=== PATIENT | female | born 1945 | race African-American/Black ===

== ENCOUNTER → 2017-02-17 | Outpatient (CLI) | payer MEDICARE, MEDICAID ==
[~2017-02-17] MED LIST: AMLO-145 PO; BUPR-166 PO; CYCL-117 PO; QUET300T5 PO
--- NOTE | 2017-02-17 12:11 | RADRPT ---
PROCEDURE: Ultrasound of the right upper extremity venous system. CLINICAL INDICATION: Right upper extremity swelling.. TECHNIQUE: Concepcion scale with and without compression, color doppler, spectral doppler of the venous system of the bilateral upper extremity was performed. Venous augmentation maneuvers were utilized. COMPARISON: No prior studies are available for comparison. FINDINGS: RIGHT: Jugular vein: Patent and compressible. Subclavian vein: Patent and compressible. Axillary vein: Patent and compressible. Brachial vein: Patent and compressible. Basilic vein: Patent and compressible. Cephalic vein: Not visualized. Soft tissues:Normal IMPRESSION: 1. No evidence of right upper extremity deep vein thrombosis. RPTAT: [facility] Physician Mitchell Date Time Electronically viewed and signed by Physician Mitchell on 02/17/2017 12:10 /
== END | disposition home or self-care (01) ==
LOC: VAS 10:56
PROVIDERS: ATTEND Internal Medicine
DX: I80.9 Phlebitis and thrombophlebitis of unspecified site (principal)
CPT/HCPCS: 93971

== ENCOUNTER → 2017-03-21 | Outpatient (CLI) | payer MEDICARE, OTHER ==
--- NOTE | 2017-03-21 16:01 | RADRPT ---
PROCEDURE: US Thyroid. CLINICAL INDICATION: Neck pain. TECHNIQUE: High-resolution sonography of the thyroid was performed in the axial and sagittal plane s. COMPARISON: None. FINDINGS: The right lobe measures 4.7 x 1.4 x 1.5 cm. The left lobe measures 3.4 x 1.3 x 1.4 cm. The isthmus measures 0.4 cm. There are multiple small nodules bilaterally with the largest on the right measuring 0.3 cm and the largest on the left measuring 0.6 cm. There is no other thyroid nodule. Thyroid echogenicity is normal. The thyroid is normal in size. IMPRESSION: 1. Multiple small nodules bilaterally. Due to the small size, no further evaluation is required. 2. Otherwise normal thyroid ultrasound. RPTAT: QQ .Morales Michelle MD, Date Time Electronically viewed and signed by .Morales Michelle MD, on 03/21/2017 16:01 .R/
== END | disposition home or self-care (01) ==
LOC: U/S 13:54
PROVIDERS: ATTEND Internal Medicine
DX: R07.0 Pain in throat (principal); E04.1 Nontoxic single thyroid nodule
CPT/HCPCS: 76536

== ENCOUNTER 2017-06-16 14:43 | Inpatient (IN) | END 2017-07-29 18:50 | DRG 456 ==

== ENCOUNTER 2017-07-29 19:21 | Inpatient (IN) | END 2017-08-13 12:00 | disposition home health service (06) | DRG 92 ==

== ENCOUNTER 2017-08-22 15:26 | Inpatient (IN) | END 2017-09-12 20:00 | disposition home health service (06) | DRG 689 ==

== ENCOUNTER 2017-09-25 09:50 | Inpatient (IN) | END 2017-10-05 14:11 | disposition home health service (06) | DRG 689 ==

== ENCOUNTER 2018-01-08 13:36 | Emergency (ER) | END 2018-01-08 14:50 | disposition home or self-care (01) ==